=== PATIENT | female | born 1960 | race Caucasian/White ===

== ENCOUNTER → 2017-06-06 | Outpatient (CLI) | payer BC ==
--- NOTE | 2017-06-06 14:43 | MM ---
Reason for exam: screening (asymptomatic). Last mammogram was performed 1 year ago. History: Patient is postmenopausal. Family history of breast cancer in mother. Took hormonal contraceptives for 20 years beginning at age 17. Physical Findings: A clinical breast exam by your physician is recommended on an annual basis and results should be correlated with mammographic findings. MG 3D Screening Mammo W/Cad Bilateral CC and MLO view(s) were taken. Prior study comparison: May 31, 2016, bilateral MG 3d screening mammo w/cad. April 30, 2015, bilateral MG screening mammo w CAD. The breast tissue is heterogeneously dense. This may lower the sensitivity of mammography. No suspicious calcifications are seen. Focal asymmetry upper right MLO view, 7.8cm from nipple. ASSESSMENT: Incomplete: need additional imaging evaluation, BI-RAD 0 RECOMMENDATION: Special view mammogram of the right breast. If lesion persists on supplemental views, image directed ultrasound is recommended. [facility] will attempt to contact patient to return for supplemental views and ultrasound if indicated.
== END | disposition home or self-care (01) ==
LOC: RADMAMWWP 09:33
PROVIDERS: ATTEND Family Medicine
DX: Z12.31 Encounter for screening mammogram for malignant neoplasm of breast (principal); R92.2 Inconclusive mammogram
CPT/HCPCS: 77063; G0202

== ENCOUNTER → 2017-06-18 | Outpatient (CLI) | payer BC ==
--- NOTE | 2017-06-18 09:58 | MM ---
Reason for exam: additional evaluation requested from abnormal screening. Last mammogram was performed less than 1 month ago. History: Patient is postmenopausal. Family history of breast cancer in mother. Took hormonal contraceptives for 20 years beginning at age 17. Physical Findings: Nurse did not find any significant physical abnormalities on exam. MG 3D Work Up W/Cad RT ML and spot compression MLO view(s) were taken of the right breast. Prior study comparison: June 06, 2017, bilateral MG 3d screening mammo w/cad. May 31, 2016, bilateral MG 3d screening mammo w/cad. There are scattered fibroglandular densities. Finding: There are typically benign calcifications in the right breast. These results were verbally communicated with the patient and result sheet given to the patient on 06/18/17. ASSESSMENT: Probably benign, BI-RAD 3 RECOMMENDATION: Follow-up diagnostic mammogram of the right breast in 6 months.
== END | disposition home or self-care (01) ==
LOC: RADMAMWWP 09:01
PROVIDERS: ATTEND Family Medicine
DX: R92.8 Other abnormal and inconclusive findings on diagnostic imaging of breast (principal)
CPT/HCPCS: G0206; G0279

== ENCOUNTER → 2017-12-07 | Outpatient (CLI) | payer BC ==
--- NOTE | 2017-12-10 08:39 | MM ---
Reason for exam: additional evaluation requested from prior study. Last mammogram was performed 6 months ago. History: Patient is postmenopausal. Family history of breast cancer in mother. Took hormonal contraceptives for 20 years beginning at age 17. Physical Findings: Nurse did not find any significant physical abnormalities on exam. MG 3D Diag Mammo W/Cad RT CC, MLO, and LM view(s) were taken of the right breast. Prior study comparison: June 18, 2017, right breast MG 3d work up w/cad RT. June 06, 2017, bilateral MG 3d screening mammo w/cad. The breast tissue is heterogeneously dense. This may lower the sensitivity of mammography. Finding: There are typically benign round calcifications in the right breast. There is no discrete abnormality. These results were verbally communicated with the patient and result sheet given to the patient on 12/07/17. ASSESSMENT: Benign, BI-RAD 2 RECOMMENDATION: Return to routine screening mammogram schedule for both breasts. Back on schedule.
== END | disposition home or self-care (01) ==
LOC: RADMAMWWP 14:55
PROVIDERS: ATTEND Family Medicine
DX: R92.8 Other abnormal and inconclusive findings on diagnostic imaging of breast (principal)
CPT/HCPCS: 77065; G0279

== ENCOUNTER → 2018-02-18 | Outpatient (CLI) | payer BC ==
--- NOTE | 2018-02-19 09:23 | BD ---
EXAMINATION TYPE: MG DEXA axial skeleton. DATE OF EXAM: 02/18/2018 COMPARISON: NONE CLINICAL HISTORY: 57-year-old female steroid therapy, postmenopausal screening Height: 66 Weight: 173.6 FRAX RISK QUESTIONS: Alcohol (3 or more units per day): no Family History (Parent hip fracture): no Glucocorticoids (More than 3mos): yes (Ex: prednisone, prednisolone, methylprednisolone, dexamethasone, and hydrocortisone). History of Fracture in Adulthood: no Secondary Osteoporosis: 1. Type 1 Diabetes: no 2. Hyperthyroidism: no 3. Menopause before 45: no 4. Malnutrition: no 5. Chronic liver disease: no Rheumatoid Arthritis: yes Current Tobacco Use: no RISK FACTORS HISTORY OF: Family History of Osteoporosis: yes-mother Active: sometimes Diet low in dairy products/other sources of calcium: no Postmenopausal woman: around age 51 Lost more than 2 inches in height since high school: no Frequent falls: no Adrenal Insufficiency: no MEDICATIONS: plaquinil Prednisone or other steroids: yes How Lon 1/2 years Additional History: EXAM MEASUREMENTS: Bone mineral densitometry was performed using the [email or web address] System. Bone mineral density as measured about the Lumbar spine is: ----- L1-L4(G/cm2): 1.336 T Score Values are as follows: ----- L2: 0.4 ----- L3: 0.8 ----- L4: 2.1 ----- L1-L4: 1.1 Bone mineral density has: baseline Bone mineral density about the R hip (g/cm2): 0.814 Bone mineral density about the L hip (g/cm2): 0.829 T Score values are as follows: -----R Neck: -1.6 -----L Neck: -1.5 -----R Total: -0.9 -----L Total: -0.8 Bone mineral density has: baseline IMPRESSION: Osteopenia (T Score between -2.5 and -1). There is slightly increased risk of fracture and the patient may be considered for treatment. Re-Screen 2-5 years. NOTE: T-SCORE=SD OF THE YOUNG ADULT MEAN.
== END | disposition home or self-care (01) ==
LOC: RADBDWWP 16:24
PROVIDERS: ATTEND Family Medicine
DX: M85.80 Other specified disorders of bone density and structure, unspecified site (principal); N95.1 Menopausal and female climacteric states; Z92.241 Personal history of systemic steroid therapy
CPT/HCPCS: 77080

== ENCOUNTER → 2018-06-26 | Outpatient (CLI) | payer BC ==
--- NOTE | 2018-07-02 09:43 | MM ---
Reason for exam: screening (asymptomatic). Last mammogram was performed 7 months ago. History: Patient is postmenopausal. Family history of breast cancer in mother. Took hormonal contraceptives for 20 years beginning at age 17. Physical Findings: A clinical breast exam by your physician is recommended on an annual basis and results should be correlated with mammographic findings. MG 3D Screening Mammo W/Cad Bilateral CC and MLO view(s) were taken. Prior study comparison: December 07, 2017, right breast MG 3d diag mammo w/cad RT. June 18, 2017, right breast MG 3d work up w/cad RT. The breast tissue is heterogeneously dense. This may lower the sensitivity of mammography. No suspicious abnormality. No significant changes when compared with prior studies. ASSESSMENT: Benign, BI-RAD 2 RECOMMENDATION: Routine screening mammogram of both breasts in 1 year.
== END | disposition home or self-care (01) ==
LOC: RADMAMWWP 07:04
PROVIDERS: ATTEND Family Medicine
DX: Z12.31 Encounter for screening mammogram for malignant neoplasm of breast (principal)
CPT/HCPCS: 77063; 77067

== ENCOUNTER 2019-01-10 17:43 | Emergency (ER) | payer BC ==
[2019-01-10 17:48] VITALS: RESP 18
--- NOTE | 2019-01-10 18:17 | ED ---
General Adult HPI - General Chief complaint: Extremity Problem,Nontraumatic Stated complaint: Rt leg swelling Time Seen by Provider: 01/10/19 17:48 Source: patient, RN notes reviewed Mode of arrival: ambulatory Limitations: no limitations - History of Present Illness Initial comments: 58-year-old female presents to the emergency department for a chief complaint of right leg swelling 2 days. Patient states she has had pain in the posterior aspect of the right leg. Patient states she went to the chiropractor today and she did have some muscle spasms but they were concerned for blood clot. Patient states she then presented to the emergency department for evaluation. Patient denies previous history of clots. Patient denies any recent travel or hormone use. Patient denies any shortness of breath or chest pain. Patient has no other complaints at this time including shortness of breath , chest pain, abdominal pain, nausea or vomiting, headache, or visual changes. - Related Data Home Medications Medication Instructions Recorded Confirmed Aspirin [[place] Aspirin EC] 81 mg PO DAILY 01/10/19 01/10/19 Baclofen [Lioresal] 10 mg PO HS 01/10/19 01/10/19 Hydroxychloroquine Sulfate 200 mg PO DAILY 01/10/19 01/10/19 [Plaquenil] Ibuprofen [Motrin Ib] 400 mg PO Q46H PRN 01/10/19 01/10/19 Levothyroxine Sodium [Synthroid] 25 mcg PO DAILY 01/10/19 01/10/19 Omeprazole 20 mg PO DAILY 01/10/19 01/10/19 traMADol HCl [Ultram] 100 mg PO DAILY 01/10/19 01/10/19 Allergies Allergy/AdvReac Type Severity Reaction Status Date / Time Sulfa (Sulfonamide Allergy Rash/Hives Verified 01/10/19 18:14 Antibiotics) Review of Systems ROS Statement: Those systems with pertinent positive or pertinent negative responses have been documented in the HPI. ROS Other: All systems not noted in ROS Statement are negative. Past Medical History Past Medical History: Osteoarthritis (OA), Thyroid Disorder History of Any Multi-Drug Resistant Organisms: None Reported Past Surgical History: Tubal Ligation Past Psychological History: No Psychological Hx Reported Smoking Status: Never smoker Past Alcohol Use History: Occasional Past Drug Use History: None Reported General Exam Limitations: no limitations General appearance: alert, in no apparent distress Head exam: Present: atraumatic, normocephalic, normal inspection Eye exam: Present: normal appearance, PERRL, EOMI. Absent: scleral icterus, conjunctival injection, periorbital swelling ENT exam: Present: normal exam, mucous membranes moist Neck exam: Present: normal inspection, full ROM. Absent: tenderness, meningismus, lymphadenopathy Respiratory exam: Present: normal lung sounds bilaterally. Absent: respiratory distress, wheezes, rales, rhonchi, stridor Cardiovascular Exam: Present: regular rate, normal rhythm, normal heart sounds. Absent: systolic murmur, diastolic murmur, rubs, gallop, clicks GI/Abdominal exam: Present: soft, normal bowel sounds. Absent: distended, tenderness, guarding, rebound, rigid Extremities exam: Present: full ROM (Full range of motion in the right lower extremity), tenderness (Minimal tenderness noted to the posterior right knee. No tenderness to the anterior right knee.), normal capillary refill (camp refill < 2 seconds, DP pulse strong on doppler), other (mild amount of edema noted in RLE, no erythema present. Negative Homans sign.) Course Vital Signs 01/10/19 01/10/19 17:44 19:06 Temperature 98.1 F Pulse Rate 72 71 Respiratory 18 18 Rate Blood Pressure 150/73 163/73 O2 Sat by Pulse 99 99 Oximetry Medical Decision Making - Medical Decision Making 58-year-old female presents to the emergency department for chief right leg swelling. Patient states pain is posterior to the right knee. Patient does have full range of motion but has pain behind the knee when flexing the right knee. On ultrasound no evidence of DVT however patient does have a 4 cm popliteal cyst. Likely causing patient's symptoms. No evidence of infection. Neurovascular intact. Patient will follow up with orthopedics. Pablito wrap applied here and educated on rice therapy and NSAIDs. Patient will return if she has any worsening symptoms. Disposition Clinical Impression: Popliteal cyst Disposition: HOME SELF-CARE Condition: Good Instructions (If sedation given, give patient instructions): Bakers Cyst (ED) Additional Instructions: Please take Motrin or Tylenol for pain. Use Pablito wrap as needed. Please follow up with orthopedics in one to 2 days. Return here to the emergency department if you have any worsening symptoms. Is patient prescribed a controlled substance at d/c from ED?: No Referrals: Dave Vigil MD [Primary Care Provider] - 1-2 days Griffin Gallo MD [STAFF PHYSICIAN] - 1-2 days Time of Disposition: 19:34
--- NOTE | 2019-01-10 19:08 | US ---
EXAMINATION TYPE: US venous doppler duplex LE RT DATE OF EXAM: 01/10/2019 6:43 PM COMPARISON: NONE CLINICAL HISTORY: Pain. pain, no hx of blood clots, on aspirin, no redness, no injury, no previous [place] rgeries SIDE PERFORMED: Right TECHNIQUE: The lower extremity deep venous system is examined utilizing real time linear array sonog abdirahman with graded compression, doppler sonography and color-flow sonography. VESSELS IMAGED: External Iliac Vein (EIV) Common Femoral Vein Deep Femoral Vein Greater Saphenous Vein * Femoral Vein Popliteal Vein Small Saphenous Vein * Proximal Calf Veins (* superficial vessels) Right Leg: Negative for DVT. Posterior knee, hypoechoic lesion seen - 4.1 x 2.5 x 2.2 cm IMPRESSION: No evidence of deep venous thrombosis. Popliteal cyst is noted.
[2019-01-10 19:42] VITALS: BP 154/82; PULSE 78; TEMP 97.8
== END 2019-01-10 19:43 | disposition home or self-care (01) ==
LOC: EC 17:43
DX: M71.21 Synovial cyst of popliteal space [Baker], right knee (principal); E07.9 Disorder of thyroid, unspecified; Z79.82 Long term (current) use of aspirin; Z79.890 Hormone replacement therapy; Z79.899 Other long term (current) drug therapy; Z88.2 Allergy status to sulfonamides
CPT/HCPCS: 99283

== ENCOUNTER → 2019-06-30 | Outpatient (CLI) | payer BC ==
--- NOTE | 2019-06-30 13:47 | MM ---
Reason for exam: additional evaluation requested from prior study. Last mammogram was performed 1 year ago. History: Patient is postmenopausal. Family history of breast cancer in mother. Took hormonal contraceptives for 20 years beginning at age 17. Physical Findings: Nurse did not find any significant physical abnormalities on exam. MG 3D Diag Mammo W/Cad CODI Bilateral CC, MLO, LM, and spot compression CC view(s) were taken. Prior study comparison: June 26, 2018, bilateral MG 3d screening mammo w/cad. December 07, 2017, right breast MG 3d diag mammo w/cad RT. There are scattered fibroglandular densities. Lateral asymmetric density is seen on 3D within the right breast, but does not persist on spot 3D view. No significant new findings when compared with previous films. These results were verbally communicated with the patient and result sheet given to the patient on 06/30/19. ASSESSMENT: Benign, BI-RAD 2 RECOMMENDATION: Routine screening mammogram of both breasts in 1 year.
== END | disposition home or self-care (01) ==
LOC: RADMAMWWP 12:56
PROVIDERS: ATTEND Family Medicine
DX: R92.8 Other abnormal and inconclusive findings on diagnostic imaging of breast (principal)
CPT/HCPCS: 77062; 77066

== ENCOUNTER → 2021-09-05 | Outpatient (CLI) | payer BC ==
--- NOTE | 2021-09-06 10:45 | MM ---
Reason for exam: screening (asymptomatic). Last mammogram was performed 1 year and 1 month ago. History: Patient is postmenopausal. Family history of breast cancer in mother. Took hormonal contraceptives for 20 years beginning at age 17. Physical Findings: A clinical breast exam by your physician is recommended on an annual basis and results should be correlated with mammographic findings. MG 3D Screening Mammo W/Cad Bilateral CC and MLO view(s) were taken. Prior study comparison: August 04, 2020, bilateral MG 3d screening mammo w/cad. June 30, 2019, bilateral MG 3d diag mammo w/cad CODI. June 26, 2018, bilateral MG 3d screening mammo w/cad. The breast tissue is heterogeneously dense. This may lower the sensitivity of mammography. There are benign appearing round calcifications bilaterally. There is no discrete abnormality. ASSESSMENT: Benign, BI-RAD 2 RECOMMENDATION: Routine screening mammogram of both breasts in 1 year.
== END | disposition home or self-care (01) ==
LOC: RADMAMWWP 16:22
PROVIDERS: ATTEND Obstetrics & Gynecology
DX: Z12.31 Encounter for screening mammogram for malignant neoplasm of breast (principal); Z78.0 Asymptomatic menopausal state; Z80.3 Family history of malignant neoplasm of breast
CPT/HCPCS: 77063; 77067

== ENCOUNTER → 2022-10-04 | Outpatient (CLI) | payer BC ==
--- NOTE | 2022-10-04 10:41 | MM ---
Reason for Exam: Additional evaluation requested from abnormal screening. Last screening mammogram was performed less than 1 month ago. Patient History: Menarche at age 12. First Full-Term at age 31. Late child-bearing (after 30). Postmenopausal. Patient has history of breast feeding. Hormonal Contraceptives, starting at age 17 for 20 years. Mother had breast cancer, age 54. Risk Values: Breanne 5 year model risk: 3.3%. NCI Lifetime model risk: 15.1%. Prior Study Comparison: 08/13/1999 Screening Mammogram, [facility]. 05/20/2012 Bilateral Screening Mammogram, [facility]. 07/02/2013 Bilateral Screening Mammogram, [facility]. 07/07/2014 Bilateral Screening Mammogram, [facility]. 04/30/2015 Bilateral Screening Mammogram, [facility]. 05/31/2016 Bilateral Screening Mammogram, [facility]. 06/06/2017 Bilateral Screening Mammogram, [facility]. 06/18/2017 Right Diagnostic Mammogram, [facility]. 12/07/2017 Right Diagnostic Mammogram, [facility]. 06/26/2018 Bilateral Screening Mammogram, [facility]. 06/30/2019 Bilateral Diagnostic Mammogram, [facility]. 08/04/2020 Bilateral Screening Mammogram, [facility]. 09/05/2021 Bilateral Screening Mammogram, [facility]. 09/13/2022 Bilateral MG 3D screening mammo w/cad, [facility]. Tissue Density: Left: The breast tissue is heterogeneously dense. This may lower the sensitivity of mammography. Findings: Analyzed By CAD. Asymmetric density upper left breast also persists although appears to be less conspicuous on spot images as well as a true lateral view. Ultrasound is advised. Overall Assessment: Incomplete: need additional imaging evaluation, BI-RAD 0 Management: Diagnostic Breast Ultrasound of the left breast. A clinical breast exam by your physician is recommended on an annual basis and results should be correlated with mammographic findings. This exam should not preclude additional follow-up of suspicious palpable abnormalities. Results were given to the patient verbally at the time of exam. Electronically signed and approved by: Ovidio Gusman M.D. Radiologis
--- NOTE | 2022-10-04 11:12 | USB ---
Reason for Exam: Additional evaluation requested from abnormal screening. Patient History: Menarche at age 12. First Full-Term at age 31. Late child-bearing (after 30). Postmenopausal. Patient has history of breast feeding. Hormonal Contraceptives, starting at age 17 for 20 years. Mother had breast cancer, age 54. Risk Values: Breanne 5 year model risk: 3.3%. NCI Lifetime model risk: 15.1%. Technique: Method: Targeted. Prior Study Comparison: 08/04/2020 Bilateral Screening Mammogram, [facility]. 09/05/2021 Bilateral Screening Mammogram, [facility]. 09/13/2022 Bilateral MG 3D screening mammo w/cad, [facility]. Findings: The upper section of the breast of the left breast, the axilla of the left breast and the retroareolar of the left breast were scanned. No solid or cystic masses are identified.. There is mildly prominent left axillary lymph node which could be reactive in nature. Short-term follow-up is recommended in 3 months. Overall Assessment: Probably benign, BI-RAD 3 Management: Diagnostic Breast Ultrasound of the left breast in 3 months. A clinical breast exam by your physician is recommended on an annual basis and results should be correlated with mammographic findings. This exam should not preclude additional follow-up of suspicious palpable abnormalities. Results were given to the patient verbally at the time of exam. Electronically signed and approved by: Ovidio Gusman M.D. Radiologis
== END | disposition home or self-care (01) ==
LOC: RADMAMWWP 09:58
PROVIDERS: ATTEND Obstetrics & Gynecology
DX: R92.8 Other abnormal and inconclusive findings on diagnostic imaging of breast (principal); Z78.0 Asymptomatic menopausal state; Z80.3 Family history of malignant neoplasm of breast
CPT/HCPCS: 77061; 77065

== ENCOUNTER → 2023-01-25 | Outpatient (CLI) | payer BC ==
[2023-01-25 15:37] VITALS: BP 146/81; PULSE 67; RESP 17; TEMP 98.2
--- NOTE | 2023-01-25 16:07 | P.GSHP ---
History of Present Illness H&P Date: 01/25/23 Chief Complaint: enlarged axillary node Domonique is a 62 year old white female seen in consultation for Dr. Morales regarding an abnormal left axillary node. The patient had a bilateral screening mammogram performed on . This revealed an area of concern in the left breast for which a diagnostic mammogram was performed on [id number]. This subsequently resulted in an ultrasound being performed which revealed mildly prominent left axillary lymph node which was felt to be possibly reactive in nature. A short-term follow up in 3 months was recommended. The patient subsequently underwent a repeat ultrasound to follow the lymph node up [id number] which revealed that the lymph node remained present. Therefore was considered BIRADS 4 and a ultrasound-guided core biopsy was performed and [id number]. The lymph node at the that time was 3.5 cm long and had cortical thickening of 4-5 mm. The biopsy results revealed on [id number] a benign reactive lymph node and was felt to be concordant. The patient herself does not feel any new lumps masses or nodules of concern in either breast or under either arm. She is not complaining of any recent trauma or infection in her breast. She has never had any surgery on her breast. She states that after the core biopsy she had some soreness of her left arm from the shoulder to the elbow externally. This improving at this time. She did have the COVID vaccine in December 2020. Caffiene: 2 cups/day nicotine: none BCP: 15 years hormoens: none chocolate: weekly Family History: mother: breast cancer post-menopausal father: colon cancer paternal grandfather: colon cancer brother: skin cancer ? type brother: prostate cancer Hormonal History: menarche: 14 age at first : 31, breast fed: tried menopause: 51 Surgical History: tubaligation Medical History: hypothyroid HTN high cholesterol arthritis ( took prednisone for many years) Social History: nicotine: none alcohol: occasional drugs: none - Constitutional Constitutional: Reports sweats, Denies chills, Denies fever - EENT Eyes: denies blurred vision, denies pain Ears: bilateral: decreased hearing, deny: tinnitus Ears, nose, mouth and throat: Denies headache, Denies sore throat - Breasts Breasts: bilateral: as per HPI - Cardiovascular Cardiovascular: Denies chest pain, Denies shortness of breath - Respiratory Respiratory: Denies cough, Denies 7 - Gastrointestinal Comment: PUD Gastrointestinal: Denies abdominal pain, Denies diarrhea, Denies nausea, Denies vomiting - Genitourinary (Female) Genitourinary: Denies dysuria, Denies hematuria - Menstruation Menstruation: Reports postmenopausal - Musculoskeletal Musculoskeletal: Reports as per HPI - Integumentary Integumentary: Denies pruritus, Denies rash - Neurological Neurological: Denies numbness, Denies weakness - Psychiatric Psychiatric: Denies anxiety, Denies depression - Endocrine Endocrine: Denies fatigue, Denies weight change - Hematologic/Lymphatic Comment: baby aspirin daily - Allergic/Immunologic Allergic/Immunologic: Reports as per HPI Past Medical History Past Medical History: Hyperlipidemia, Hypertension, Osteoarthritis (OA), Thyroid Disorder History of Any Multi-Drug Resistant Organisms: None Reported Past Surgical History: Tubal Ligation Past Anesthesia/Blood Transfusion Reactions: No Reported Reaction Past Psychological History: No Psychological Hx Reported Smoking Status: Never smoker Past Alcohol Use History: Occasional Past Drug Use History: None Reported Medications and Allergies Home Medications Medication Instructions Recorded Confirmed Type Aspirin [[place] Aspirin EC] 81 mg PO DAILY 01/10/19 01/25/23 History Baclofen [Lioresal] 10 mg PO HS 01/10/19 01/25/23 History Ibuprofen [Motrin Ib] 400 mg PO Q46H PRN 01/10/19 01/25/23 History Levothyroxine Sodium [Synthroid] 25 mcg PO DAILY 01/10/19 01/25/23 History Omeprazole 20 mg PO DAILY 01/10/19 01/25/23 History traMADol HCl [Ultram] 100 mg PO BID 01/10/19 01/25/23 History Losartan-Hctz 50-12.5 mg [Hyzaar 1 tab PO DAILY 01/09/23 01/25/23 History 50-12.5] Rosuvastatin [Crestor] 10 mg PO DAILY 01/09/23 01/25/23 History Allergies Allergy/AdvReac Type Severity Reaction Status Date / Time Sulfa (Sulfonamide Allergy Rash/Hives Verified 01/25/23 15:30 Antibiotics) Surgical - Exam Vital Signs Temp Pulse Resp BP Pulse Ox 98.2 F 67 17 146/81 98 01/25/23 15:32 01/25/23 15:32 01/25/23 15:32 01/25/23 15:32 01/25/23 15:32 - General no distress - Eyes normal ocular movement - Neck trachea midline - Respiratory normal respiratory effort, clear to auscultation - Cardiovascular Rhythm: regular Heart Sounds: normal: S1, S2 - Abdomen Abdomen: soft, non tender, no guarding, no rigid, no rebound - Integumentary normal turgor - Neurologic no disoriented, no combative - Musculoskeletal normal gait - Psychiatric oriented to time, oriented to person, oriented to place, speech is normal, memory intact Breast Exam: BRA: 38DD Inspection: Bilateral grade 2/3 ptosis Palpation: Right breast: Multi-positional exam fibrocystic changes no dominant masses or nodules of concern Right axilla: No adenopathy of concern Left breast: Multi-positional exam fibrocystic changes no dominant masses or nodules of concern Left axilla: No adenopathy of concern No cervical adenopathy of concern No groin adenopathy of concern No enlargement of the liver or spleen Results Mammogram and ultrasound results reviewed Assessment and Plan Assessment: Impression: Ultrasound core biopsy of left axillary node benign and concordant Plan: Repeat bilateral mammogram in September 2023 Repeat left axillary ultrasound in 6 months with physician exam at that time CC: Dr. Morales, Dr. Kodi Vigil
== END ==
LOC: WWCWWP 15:24
PROVIDERS: ATTEND Surgery
DX: N63.32 Unspecified lump in axillary tail of the left breast (principal); E78.5 Hyperlipidemia, unspecified; I10 Essential (primary) hypertension; M19.90 Unspecified osteoarthritis, unspecified site; Z79.82 Long term (current) use of aspirin; Z88.2 Allergy status to sulfonamides; E03.9 Hypothyroidism, unspecified; Z79.890 Hormone replacement therapy

== ENCOUNTER → 2023-07-23 | Outpatient (CLI) | payer BC ==
--- NOTE | 2023-07-23 10:00 | USB ---
Reason for Exam: Follow-up at short interval from prior study. Patient History: Menarche at age 12. First Full-Term at age 31. Late child-bearing (after 30). Postmenopausal. Patient has history of breast feeding. Hormonal Contraceptives, starting at age 17 for 20 years. 01/18/2023, Benign US biopsy breast VAD LT on the left side. Mother had breast cancer, age 54. Risk Values: Breanne 5 year model risk: 3.9%. NCI Lifetime model risk: 17.6%. Technique: Method: Targeted. Prior Study Comparison: 09/05/2021 Bilateral Screening Mammogram, [facility]. 09/13/2022 Bilateral MG 3D screening mammo w/cad, [facility]. 10/04/2022 Left MG 3D work up w/cad LT, [facility]. Findings: The axilla of the left breast was scanned. No solid or cystic masses are identified. Previously sampled lymph node is again noted and measures 2.1 x .7 cm vs 3.5 cm in length previously. Overall Assessment: Benign, BI-RAD 2 Management: Screening Mammogram of both breasts in 6 months. A clinical breast exam by your physician is recommended on an annual basis and results should be correlated with mammographic findings. This exam should not preclude additional follow-up of suspicious palpable abnormalities. Results were given to the patient verbally at the time of exam. Electronically signed and approved by: Ovidio Gusman M.D. Radiologis
== END | disposition home or self-care (01) ==
LOC: RADUSWWP 09:37
PROVIDERS: ATTEND Surgery
DX: N63.20 Unspecified lump in the left breast, unspecified quadrant (principal); Z78.0 Asymptomatic menopausal state; Z80.3 Family history of malignant neoplasm of breast

== ENCOUNTER → 2023-07-26 | Outpatient (CLI) | payer BC ==
[2023-07-26 16:12] VITALS: BP 124/71; PULSE 59; RESP 18; TEMP 98
--- NOTE | 2023-07-26 16:21 | P.PN ---
Subjective Progress Note Date: 07/26/23 enlarged axillary node Domonique is a 62 year old white female seen in consultation for Dr. Morales regarding an abnormal left axillary node. The patient had a bilateral screening mammogram performed on . This revealed an area of concern in the left breast for which a diagnostic mammogram was performed on [id number]. This subsequently resulted in an ultrasound being performed which revealed mildly prominent left axillary lymph node which was felt to be possibly reactive in nature. A short-term follow up in 3 months was recommended. The patient subsequently underwent a repeat ultrasound to follow the lymph node up [id number] which revealed that the lymph node remained present. Therefore was considered BIRADS 4 and a ultrasound-guided core biopsy was performed and 3922. The lymph node at the that time was 3.5 cm long and had cortical thickening of 4-5 mm. The biopsy results revealed on 3922 a benign reactive lymph node and was felt to be concordant. The patient herself does not feel any new lumps masses or nodules of concern in either breast or under either arm. She is not complaining of any recent trauma or infection in her breast. She has never had any surgery on her breast. She states that after the core biopsy she had some soreness of her left arm from the shoulder to the elbow externally. This improving at this time. She did have the COVID vaccine in December 2020. 07-26-23 The patient underwent a repeat left axillary ultrasound on . This re vealed that the left axillary lymph node which had previously been sampled had decreased in size from 3.5 cm in length to 2.1 cm in length. It was felt to be benign BIRADS 2. She is due for a bilateral mammogram in September 2023. The patient states after the ultrasound core biopsy she developed some aching sensation in the upper and posterior aspect of the left arm. It is not constant. 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 She does have some small blisters that developed between her breast and over other areas when she sweats especially. Caffiene: 2 cups/day nicotine: none BCP: 15 years hormoens: none chocolate: weekly Family History: mother: breast cancer post-menopausal father: colon cancer paternal grandfather: colon cancer brother: skin cancer ? type brother: prostate cancer Hormonal History: menarche: 14 age at first : 31, breast fed: tried menopause: 51 Surgical History: tubaligation Medical History: hypothyroid HTN high cholesterol arthritis ( took prednisone for many years) Social History: nicotine: none alcohol: occasional drugs: none - Constitutional Constitutional: Reports sweats, Denies chills, Denies fever - EENT Eyes: denies blurred vision, denies pain Ears: bilateral: decreased hearing, deny: tinnitus Ears, nose, mouth and throat: Denies headache, Denies sore throat - Breasts Breasts: bilateral: as per HPI - Cardiovascular Cardiovascular: Denies chest pain, Denies shortness of breath - Respiratory Respiratory: Denies cough - Gastrointestinal Comment: PUD Gastrointestinal: Denies abdominal pain, Denies diarrhea, Denies nausea, Denies vomiting - Genitourinary (Female) Genitourinary: Denies dysuria, Denies hematuria - Menstruation Menstruation: Reports postmenopausal - Musculoskeletal Musculoskeletal: Reports as per HPI - Integumentary Integumentary: Denies pruritus, Denies rash - Neurological Neurological: Denies numbness, Denies weakness - Psychiatric Psychiatric: Denies anxiety, Denies depression - Endocrine Endocrine: Denies fatigue, Denies weight change - Hematologic/Lymphatic Comment: baby aspirin daily - Allergic/Immunologic Allergic/Immunologic: Reports as per HPI Past Medical History Past Medical History: Hyperlipidemia, Hypertension, Osteoarthritis (OA), Thyroid Disorder History of Any Multi-Drug Resistant Organisms: None Reported Past Surgical History: Tubal Ligation Past Anesthesia/Blood Transfusion Reactions: No Reported Reaction Past Psychological History: No Psychological Hx Reported Smoking Status: Never smoker Past Alcohol Use History: Occasional Past Drug Use History: None Reported Medications and Allergies Home Medications Medication Instructions Recorded Confirmed Type Aspirin [[place] Aspirin EC] 81 mg PO DAILY 01/10/19 01/25/23 History Baclofen [Lioresal] 10 mg PO HS 01/10/19 01/25/23 History Ibuprofen [Motrin Ib] 400 mg PO Q46H PRN 01/10/19 01/25/23 History Levothyroxine Sodium [Synthroid] 25 mcg PO DAILY 01/10/19 01/25/23 History Omeprazole 20 mg PO DAILY 01/10/19 01/25/23 History traMADol HCl [Ultram] 100 mg PO BID 01/10/19 01/25/23 History Losartan-Hctz 50-12.5 mg [Hyzaar 1 tab PO DAILY 01/09/23 01/25/23 History 50-12.5] Rosuvastatin [Crestor] 10 mg PO DAILY 01/09/23 01/25/23 History Allergies Allergy/AdvReac Type Severity Reaction Status Date / Time Sulfa (Sulfonamide Allergy Rash/Hives Verified 01/25/23 15:30 Antibiotics) Objective - Vital Signs Vital signs: Intake & Output 07/25/23 07/26/23 07/26/23 18:59 06:59 18:59 Weight 81.647 kg - Constitutional General appearance: Present: cooperative - EENT Eyes: Present: EOMI ENT: Present: hearing grossly normal - Neck Neck: Present: normal ROM - Integumentary Integumentary: Present: normal turgor - Musculoskeletal Musculoskeletal: Present: gait normal - Psychiatric Psychiatric: Present: A&O x's 3, appropriate affect, intact judgment & insight - Additional findings Additional findings: Examination of the left axilla is performed No adenopathy of concern There is pain when she hyperextends the axilla or ports the arm behind her head which is similar to what she had when she had the ultrasound core biopsy No cervical adenopathy of concern No right axillary adenopathy of concern Assessment and Plan Assessment: Impression: Ultrasound core biopsy of left axillary node benign and concordant Intermittent discomfort left shoulder/exacerbated by putting her arm over her head Plan: Repeat bilateral mammogram in September 2023 The patient was given the option of seeing physical therapy related to the left shoulder discomfort and at this time has declined Patient will follow up after her bilateral mammogram in September CC: Dr. Morales, Dr. Kodi Vigil
== END ==
LOC: WWCWWP 15:27
PROVIDERS: ATTEND Surgery
DX: I10 Essential (primary) hypertension (principal); E03.9 Hypothyroidism, unspecified; E78.00 Pure hypercholesterolemia, unspecified; M19.90 Unspecified osteoarthritis, unspecified site; Z80.3 Family history of malignant neoplasm of breast; Z79.890 Hormone replacement therapy; Z88.2 Allergy status to sulfonamides; Z79.82 Long term (current) use of aspirin; Z79.899 Other long term (current) drug therapy

== ENCOUNTER → 2023-09-14 | Outpatient (CLI) | payer BC ==
--- NOTE | 2023-09-17 08:56 | MM ---
Reason for Exam: Screening (asymptomatic). Last screening mammogram was performed 12 month(s) ago. Patient History: Menarche at age 12. First Full-Term at age 31. Late child-bearing (after 31). Postmenopausal. Patient has history of breast feeding. Hormonal Contraceptives, starting at age 17 for 20 years. 01/18/2023, Benign US biopsy breast VAD LT on the left side. Niece had breast cancer, age 47. Mother had breast cancer, age 54. Risk Values: Breanne 5 year model risk: 3.9%. NCI Lifetime model risk: 17.6%. Prior Study Comparison: 09/05/2021 Bilateral Screening Mammogram, [facility]. 09/13/2022 Bilateral MG 3D screening mammo w/cad, [facility]. 10/04/2022 Left MG 3D work up w/cad LT, [facility]. Tissue Density: There are scattered fibroglandular densities. Findings: Analyzed By CAD. Pattern appears stable. Benign calcification is present within the right breast. Some punctate calcifications within the left breast. No significant interval changes. No suspicious groups of microcalcifications, spiculated or lobular masses, architectural distortion or other secondary signs of malignancy are mammographically apparent. Overall Assessment: Benign, BI-RAD 2 Management: Screening Mammogram of both breasts in 1 year. A negative mammogram report should not preclude additional follow up of suspicious palpable abnormalities. Patient should continue monthly self breast exam. A clinical breast exam by your physician is recommended on an annual basis and results should be correlated with mammographic findings. Electronically signed and approved by: Sd Bautista D.O. Radiologis
== END | disposition home or self-care (01) ==
LOC: RADMAMWWP 08:18
PROVIDERS: ATTEND Surgery
DX: Z12.31 Encounter for screening mammogram for malignant neoplasm of breast (principal); Z78.0 Asymptomatic menopausal state; Z80.3 Family history of malignant neoplasm of breast
CPT/HCPCS: 77063; 77067

== ENCOUNTER → 2023-09-21 | Outpatient (CLI) | payer BC ==
--- NOTE | 2023-09-21 15:47 | P.PN ---
Subjective Progress Note Date: 09/21/23 07/26/23 enlarged axillary node Domonique is a 62 year old white female seen in consultation for Dr. Morales regarding an abnormal left axillary node. The patient had a bilateral screening mammogram performed on . This revealed an area of concern in the left breast for which a diagnostic mammogram was performed on [id number]. This subsequently resulted in an ultrasound being performed which revealed mildly prominent left axillary lymph node which was felt to be possibly reactive in nature. A short-term follow up in 3 months was recommended. The patient subsequently underwent a repeat ultrasound to follow the lymph node up [id number] which revealed that the lymph node remained present. Therefore was considered BIRADS 4 and a ultrasound-guided core biopsy was performed and 3922. The lymph node at the that time was 3.5 cm long and had cortical thickening of 4-5 mm. The biopsy results revealed on 3922 a benign reactive lymph node and was felt to be concordant. The patient herself does not feel any new lumps masses or nodules of concern in either breast or under either arm. She is not complaining of any recent trauma or infection in her breast. She has never had any surgery on her breast. She states that after the core biopsy she had some soreness of her left arm from the shoulder to the elbow externally. This improving at this time. She did have the COVID vaccine in December 2020. 07-26-23 The patient [place] [id number]. This revealed that the left axillary lymph node which had previously been sampled had decreased in size from 3.5 cm in length to 2.1 cm in length. It was felt to be benign BIRADS 2. She is due for a bilateral mammogram in September 2023. The patient states after the ultrasound core biopsy she developed some aching sensation in the upper and posterior aspect of the left arm. It is not constant. 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 She does have some small blisters that developed between her breast and over other areas when she sweats especially. bilateral mammogram on 09-14-23 BIRAD 2 Breanne risk evaluation 5 years: 3.9% NCI lifetime risk 17.6% This time patient has declined chemoprevention. The patient was having some pain in her left axilla when she hyperextended her arm that is intermittent at this time. Caffiene: 2 cups/day nicotine: none BCP: 15 years hormoens: none chocolate: weekly Family History: mother: breast cancer post-menopausal father: colon cancer paternal grandfather: colon cancer brother: skin cancer ? type brother: prostate cancer Hormonal History: menarche: 14 age at first : 31, breast fed: tried menopause: 51 Surgical History: tubaligation Medical History: hypothyroid HTN high cholesterol arthritis ( took prednisone for many years) Social History: nicotine: none alcohol: occasional drugs: none - Constitutional Constitutional: Reports sweats, Denies chills, Denies fever - EENT Eyes: denies blurred vision, denies pain Ears: bilateral: decreased hearing, deny: tinnitus Ears, nose, mouth and throat: Denies headache, Denies sore throat - Breasts Breasts: bilateral: as per HPI - Cardiovascular Cardiovascular: Denies chest pain, Denies shortness of breath - Respiratory Respiratory: Denies cough - Gastrointestinal Comment: PUD Gastrointestinal: Denies abdominal pain, Denies diarrhea, Denies nausea, Denies vomiting - Genitourinary (Female) Genitourinary: Denies dysuria, Denies hematuria - Menstruation Menstruation: Reports postmenopausal - Musculoskeletal Musculoskeletal: Reports as per HPI - Integumentary Integumentary: Denies pruritus, Denies rash - Neurological Neurological: Denies numbness, Denies weakness - Psychiatric Psychiatric: Denies anxiety, Denies depression - Endocrine Endocrine: Denies fatigue, Denies weight change - Hematologic/Lymphatic Comment: baby aspirin daily - Allergic/Immunologic Allergic/Immunologic: Reports as per HPI Past Medical History Past Medical History: Hyperlipidemia, Hypertension, Osteoarthritis (OA), Thyroid Disorder History of Any Multi-Drug Resistant Organisms: None Reported Past Surgical History: Tubal Ligation Past Anesthesia/Blood Transfusion Reactions: No Reported Reaction Past Psychological History: No Psychological Hx Reported Smoking Status: Never smoker Past Alcohol Use History: Occasional Past Drug Use History: None Reported Medications and Allergies Home Medications Medication Instructions Recorded Confirmed Type Aspirin [[place] Aspirin EC] 81 mg PO DAILY 01/10/19 01/25/23 History Baclofen [Lioresal] 10 mg PO HS 01/10/19 01/25/23 History Ibuprofen [Motrin Ib] 400 mg PO Q46H PRN 01/10/19 01/25/23 History Levothyroxine Sodium [Synthroid] 25 mcg PO DAILY 01/10/19 01/25/23 History Omeprazole 20 mg PO DAILY 01/10/19 01/25/23 History traMADol HCl [Ultram] 100 mg PO BID 01/10/19 01/25/23 History Losartan-Hctz 50-12.5 mg [Hyzaar 1 tab PO DAILY 01/09/23 01/25/23 History 50-12.5] Rosuvastatin [Crestor] 10 mg PO DAILY 01/09/23 01/25/23 History Allergies Allergy/AdvReac Type Severity Reaction Status Date / Time Sulfa (Sulfonamide Allergy Rash/Hives Verified 01/25/23 15:30 Antibiotics) Objective - Constitutional General appearance: Present: cooperative - EENT Eyes: Present: EOMI ENT: Present: hearing grossly normal - Neck Neck: Present: normal ROM - Respiratory Respiratory: bilateral: CTA - Cardiovascular Rhythm: regular - Integumentary Integumentary: Present: normal turgor - Musculoskeletal Musculoskeletal: Present: gait normal - Psychiatric Psychiatric: Present: A&O x's 3, appropriate affect, intact judgment & insight - Additional findings Additional findings: Breast Exam: BRA: 38DD Inspection: A lateral grade 2/3 ptosis Palpation: Right breast: Multiple positional exam fibrocystic changes no dominant masses or nodules of concern Right axilla: No adenopathy of concern Left breast: Multiple positional exam fibrocystic changes no dominant masses or nodules of concern Left axilla: No adenopathy of concern Patient has no restriction in range of motion of the left shoulder at this time Assessment and Plan Assessment: Impression: Fibrocystic breast changes Bilateral mammogram [id number] benign BIRADS 2 Recent left axillary core biopsy benign and concordant Plan: Bilateral mammogram in 1 year 3. Left axillary ultrasound in 6 months with physician exam at that time CC: Dr. Morales, Dr. Flores
== END ==
LOC: WWCWWP 14:47
PROVIDERS: ATTEND Surgery
DX: Z12.31 Encounter for screening mammogram for malignant neoplasm of breast (principal); N60.12 Diffuse cystic mastopathy of left breast; E03.9 Hypothyroidism, unspecified; E78.00 Pure hypercholesterolemia, unspecified; I10 Essential (primary) hypertension; M19.90 Unspecified osteoarthritis, unspecified site; Z79.899 Other long term (current) drug therapy; Z79.890 Hormone replacement therapy; Z88.2 Allergy status to sulfonamides; Z80.3 Family history of malignant neoplasm of breast; Z79.82 Long term (current) use of aspirin

== ENCOUNTER 2024-04-16 16:08 | Emergency (ER) | payer BC ==
[2024-04-16 16:19] VITALS: TEMP 98.4
--- NOTE | 2024-04-16 16:56 | XR ---
EXAMINATION TYPE: XR ankle complete LT DATE OF EXAM: 04/16/2024 4:46 PM CLINICAL INDICATION:Female, 63 years old with history of fall; H COMPARISON: None TECHNIQUE: XR ankle complete LT; ankle is imaged in frontal, lateral and oblique projections. FINDINGS/IMPRESSION: Acute Fracture dislocation of the ankle leg with fractures of the tibia and fibula. There is posterio r displacement of the ankle. Fractures involve the medial malleolus and fibula. Posterior tibial plaf ond fracture not excluded. There is associated soft tissue swelling.
--- NOTE | 2024-04-16 17:08 | ED ---
General Adult HPI <Randy Treviño - Last Filed: 04/16/24 19:34> - General Source: patient, EMS, RN notes reviewed Mode of arrival: EMS Limitations: no limitations <KatarzynajakobMy - Last Filed: 04/17/24 00:43> - General Chief complaint: Fall Stated complaint: Fall-L ankle injury Time Seen by Provider: 04/16/24 16:13 - History of Present Illness Initial comments: 63 year old female presents to the emergency department for evaluation of left ankle injury following a fall. Patient states that she was standing on the deck leaning on the railing when it broke causing her to fall forward. She states that she planted her left foot onto the ground and it twisted. She states that she also fell onto her left arm but denies any pain to that location. She denies head injury. Denies blood thinners. (My Sanchez) - Related Data Home Medications Medication Instructions Recorded Confirmed Aspirin [[place] Aspirin EC] 81 mg PO DAILY 01/10/19 09/21/23 Baclofen [Lioresal] 10 mg PO HS 01/10/19 09/21/23 Ibuprofen [Motrin Ib] 400 mg PO Q46H PRN 01/10/19 09/21/23 Levothyroxine Sodium [Synthroid] 25 mcg PO DAILY 01/10/19 09/21/23 Omeprazole 20 mg PO DAILY 01/10/19 09/21/23 traMADol HCl [Ultram] 100 mg PO BID 01/10/19 09/21/23 Losartan-Hctz 50-12.5 mg [Hyzaar 1 tab PO DAILY 01/09/23 09/21/23 50-12.5] Rosuvastatin [Crestor] 10 mg PO DAILY 01/09/23 09/21/23 Cholecalciferol [Vitamin D3 (25 25 mcg PO DAILY 09/21/23 09/21/23 Mcg = 1000 Iu)] Zinc Gluconate [Zinc] 50 mg PO DAILY 09/21/23 09/21/23 Previous Rx's Medication Instructions Recorded HYDROcodone/APAP 5-325MG [[place] 5] 1 each PO Q6HR PRN #12 tab 04/16/24 Allergies Allergy/AdvReac Type Severity Reaction Status Date / Time Sulfa (Sulfonamide Allergy Rash/Hives Verified 09/21/23 15:36 Antibiotics) Review of Systems ROS Other: All systems not noted in ROS Statement are negative. <Randy Treviño - Last Filed: 04/16/24 19:34> ROS Other: All systems not noted in ROS Statement are negative. <My Sanchez - Last Filed: 04/17/24 00:43> ROS Statement: Those systems with pertinent positive or pertinent negative responses have been documented in the HPI. Past Medical History Past Medical History: Hyperlipidemia, Hypertension, Osteoarthritis (OA), Thyroid Disorder History of Any Multi-Drug Resistant Organisms: None Reported Past Surgical History: Tubal Ligation Past Anesthesia/Blood Transfusion Reactions: No Reported Reaction Past Psychological History: No Psychological Hx Reported Smoking Status: Never smoker Past Alcohol Use History: Occasional Past Drug Use History: None Reported <My Sanchez - Last Filed: 04/17/24 00:43> General Exam Limitations: no limitations General appearance: alert, in no apparent distress Head exam: Present: atraumatic, normocephalic, normal inspection Eye exam: Present: normal appearance, PERRL, EOMI. Absent: scleral icterus, conjunctival injection, periorbital swelling ENT exam: Present: normal exam, mucous membranes moist Neck exam: Present: normal inspection. Absent: tenderness, meningismus, lymphadenopathy Respiratory exam: Present: normal lung sounds bilaterally. Absent: respiratory distress, wheezes, rales, rhonchi, stridor Cardiovascular Exam: Present: regular rate, normal rhythm, normal heart sounds. Absent: systolic murmur, diastolic murmur, rubs, gallop, clicks Extremities exam: Present: tenderness (left ankle), normal capillary refill, other (deformity to the left ankle ). Absent: full ROM (decreased ROM left ankle) Back exam: Present: normal inspection Neurological exam: Present: alert, oriented X3 Psychiatric exam: Present: normal affect, normal mood Skin exam: Present: warm, dry, normal color, abrasion (abrasion to left elbow). Absent: intact, rash <My Sanchez - Last Filed: 04/17/24 00:43> Course Vital Signs 04/16/24 04/16/24 04/16/24 16:14 17:59 18:01 Temperature 98.4 F Pulse Rate 71 85 70 Respiratory 18 16 16 Rate Blood Pressure 167/69 163/84 179/85 O2 Sat by Pulse 98 100 100 Oximetry 04/16/24 04/16/24 04/16/24 18:06 18:11 18:16 Temperature Pulse Rate 75 71 67 Respiratory 16 16 16 Rate Blood Pressure 175/85 145/75 135/72 O2 Sat by Pulse 94 L 100 99 Oximetry 04/16/24 04/16/24 04/16/24 18:31 18:46 19:01 Temperature Pulse Rate 76 72 78 Respiratory 18 16 16 Rate Blood Pressure 148/83 148/84 147/69 O2 Sat by Pulse 100 100 100 Oximetry Procedures - Procedural Sedation *Procedural Sedation Start Time: 18:03 *Procedural Sedation Stop Time: 18:18 *Risks,benefits, and alternative therapies discussed?: Yes *Patient indicates understanding of risk/benefit discussion?: Yes *Indications: fracture/dislocation reduction *Previous Adverse Reaction to Anesthesia/Sedation?: No * Testing Complete?: No Reason Test Not Complete:: Age > 60 *ASA Class: I *Mallampati Airway Score: 2 Preparation: groundwater monitoring technician applied, pulse oximeter, capnometry used, supplemental O2 applied, suction/airway equipment at bedside, IV secured IV Propofol Dose (mgs): 100 Complications: none Patient Tolerated Procedure: well, no complications <Randy Treviño - Last Filed: 04/16/24 19:34> - Orthopedic Splinting/Casting Injury #1 Side: left Lower Extremity Immobilizer: posterior splint, stirrup splint Other Orthopedic Equipment: crutches <My Sanchez - Last Filed: 04/17/24 00:43> Medical Decision Making <My Sanchez - Last Filed: 04/17/24 00:43> - Medical Decision Making Was pt. sent in by a medical professional or institution (, PA, SHEARING MACHINE FEEDER, urgent care, hospital, or chcf...) When possible be specific @ -No Did you speak to anyone other than the patient for history (EMS, parent, family, police, friend...)? What history was obtained from this source @ -No Did you review nursing and triage notes (agree or disagree)? Why? @ -I reviewed and agree with nursing and triage notes Were old charts reviewed (outside hosp., previous admission, EMS record, old EKG, old radiological studies, urgent care reports/EKG's, chcf records)? Report findings @ -No old charts were reviewed Differential Diagnosis (chest pain, altered mental status, abdominal pain women, abdominal pain men, vaginal bleeding, weakness, fever, dyspnea, syncope, headache, dizziness, GI bleed, back pain, seizure, CVA, palpatations, mental health, musculoskeletal)? @ -Differential Musculoskeletal Muscular strain, contusion, ligament sprain, fracture, arthritis, septic arthritis, bursitis, cellulitis, muscle spasm, nerve compression, DVT, arterial occlusion, herpes zoster, electrolyte abnormality, tumor.... This is not meant to be in all inclusive list EKG interpreted by me (3pts min.). @ -None X-rays interpreted by me (1pt min.). @ -X-ray of the left ankle shows dislocation with fractures to the tibia and fibula CT interpreted by me (1pt min.). @ -None done U/S interpreted by me (1pt. min.). @ -None done What testing was considered but not performed or refused? (CT, X-rays, U/S, labs)? Why? @ -None What meds were considered but not given or refused? Why? @ -None Did you discuss the management of the patient with other professionals (professionals i.e. , PA, SHEARING MACHINE FEEDER, lab, RT, psych nurse, social sciences chair, media relations coordinator, teacher, airplane first officer, case briefer)? Give summary @ -No Was smoking cessation discussed for >3mins.? @ -No Was critical care preformed (if so, how long)? @ -No Were there social determinants of health that impacted care today? How? (Homelessness, low income, unemployed, alcoholism, drug addiction, transportation, low edu. Level, literacy, decrease access to med. care, chcf, rehab)? @ -No Was there de-escalation of care discussed even if they declined (Discuss DNR or withdrawal of care, Hospice)? DNR status @ -No What co-morbidities impacted this encounter? (DM, HTN, Smoking, COPD, CAD, Cancer, CVA, ARF, Chemo, Hep., AIDS, mental health diagnosis, sleep apnea, morbid obesity)? @ -None Was patient admitted / discharged? Hospital course, mention meds given and route, prescriptions, significant lab abnormalities, going to OR and other pertinent info. @ -Discharged. Patient presented to the emergency department for evaluation of fall with right ankle injury. X-ray was obtained which showed dislocation of the left ankle with fractures of the tibia and fibula with posterior displacement of the ankle. Conscious sedation and reduction of the left ankle was performed. Patient was placed in a stirrup and posterior splint. NVI post reduction. Postreduction x-rays were obtained which showed improved alignment. Patient was observed in the emergency department following sedation. She was provided crutches and will follow-up with orthopedics. She was also provided medication for pain control at home. Patient is understanding agreeable with plan. Patient stable at time of discharge. Undiagnosed new problem with uncertain prognosis? @ -No Drug Therapy requiring intensive monitoring for toxicity (Heparin, Nitro, Insulin, Cardizem)? @ -No Were any procedures done? @ -Conscious sedation with closed reduction Diagnosis/symptom? @ -Ankle fracture Acute, or Chronic, or Acute on Chronic? @ -Acute Uncomplicated (without systemic symptoms) or Complicated (systemic symptoms)? @ -uncomplicated Side effects of treatment? @ -No Exacerbation, Progression, or Severe Exacerbation? @ -No Poses a threat to life or bodily function? How? (Chest pain, USA, IA, pneumonia, PE, COPD, DKA, ARF, appy, cholecystitis, CVA, Diverticulitis, Homicidal, Suicidal, threat to staff... and all critical care pts) @ -No (My Sanchez) Disposition <Randy Treviño - Last Filed: 04/16/24 19:34> Is patient prescribed a controlled substance at d/c from ED?: Yes <My Sanchez - Last Filed: 04/17/24 00:43> Clinical Impression: Fall, Closed left ankle fracture Disposition: HOME SELF-CARE Condition: Stable Instructions (If sedation given, give patient instructions): Ankle Fracture (ED), Moderate Sedation (ED) Additional Instructions: Please call orthopedics tomorrow morning. Rest, ice, elevate the foot and ankle. Utilize anti-inflammatory medication such as ibuprofen. Prescriptions: HYDROcodone/APAP 5-325MG [[place] 5] 1 each PO Q6HR PRN #12 tab PRN Reason: Pain Referrals: Dave Vigil MD [Primary Care Provider] - 1-2 days
[2024-04-16] MEDS: PROPOFOL 10 MG/ML 20 ML VIAL IV ONE ×2 (18:04→18:06)
--- NOTE | 2024-04-16 18:29 | XR ---
EXAMINATION TYPE: XR ankle limited LT DATE OF EXAM: 04/16/2024 6:24 PM CLINICAL INDICATION:Female, 63 years old with history of reduction; [facility] COMPARISON: Same day TECHNIQUE: XR ankle limited LT; ankle is imaged in frontal, lateral and oblique projections. FINDINGS/IMPRESSION: Improved alignment of the tibia and fibula fractures. Splint material in place no new fractures visua lized.
[2024-04-16 18:56] VITALS: RESP 16
[2024-04-16 19:03] VITALS: BP 147/69; PULSE 78
[2024-04-16] MEDS: ACET/COD 300 MG/30 MG STARTER PACK 6 TAB BTL PO STA (19:30)
== END 2024-04-16 19:40 | disposition home or self-care (01) ==
LOC: EC 16:08
DX: S82.202A Unspecified fracture of shaft of left tibia, initial encounter for closed fracture (principal); S82.402A Unspecified fracture of shaft of left fibula, initial encounter for closed fracture; Z88.2 Allergy status to sulfonamides; W18.30XA Fall on same level, unspecified, initial encounter
CPT/HCPCS: 99152; 99284; 73600; 73610; 27810; J2704

== ENCOUNTER → 2024-04-24 | Outpatient (CLI) | payer BC ==
--- NOTE | 2024-04-24 14:47 | CT ---
EXAMINATION TYPE: CT ankle LT wo con CT DLP: 248.30 mGycm, Automated exposure control for dose reduction was used. DATE OF EXAM: 04/24/2024 1:41 PM COMPARISON: Left ankle radiographs 04/16/2024 CLINICAL INDICATION:Female, 63 years old with history of S82.852A DISPLACED TRIMALLEOLAR FRACTURE OF LEFT L; PHH, trimalleolar fx. pain after fall off deck x1 week TECHNIQUE: Axial images were obtained of the left ankle without the use of IV contrast. Additional c oronal and sagittal reformatted images and soft tissue and bone window were obtained for review. 3-D reconstruction was created on a separate workstation. FINDINGS: Acute comminuted mildly displaced fracture of the distal fibula with slight lateral displac ement of approximately 2 mm. This is at the level of the ankle joint. Acute minimally displaced fract ure of the medial malleolus with approximately 2 mm of inferior and medially. Intra-articular extensi on demonstrated. Acute comminuted mild to moderately displaced fracture of the lateral malleolus with approximately 9 mm of displacement inferior and laterally. Intra-articular extension demonstrated. A dditional acute comminuted fracture of the posterior malleolus. No dislocation of the ankle. Surround ing soft tissue edema identified extending into the foot. Small joint effusion identified. Posterior and plantar calcaneus at these sites noted. IMPRESSION: 1. Acute comminuted trimalleolar fracture as described above. 2. Acute comminuted distal fibular fracture as described above.
== END | disposition home or self-care (01) ==
LOC: RADCTMAIN 13:09
PROVIDERS: ATTEND Podiatrist
DX: S82.852A Displaced trimalleolar fracture of left lower leg, initial encounter for closed fracture (principal); S82.832A Other fracture of upper and lower end of left fibula, initial encounter for closed fracture; X58.XXXA Exposure to other specified factors, initial encounter

== ENCOUNTER 2024-05-02 08:19 | Day surgery (SDC) | payer BC ==
[2024-04-30 09:37] VITALS: BMI 35.5
[~2024-05-02 08:19] MED LIST: HYDROmorphone 0.5 MG/0.5 ML SYRINGE IVP PRN; MIDAZOLAM 2 MG/2 ML VIAL IV PRN; SCOPOLAMINE 1 MG/72 HR PATCH TRANSDERM ONE
[2024-05-02] MEDS: LACTATED RINGERS 1,000 ML IV SCH (09:27)
[2024-05-02] MEDS: ONDANSETRON 4 MG/2 ML VIAL IVP ONE (09:27)
[2024-05-02] MEDS: DEXAMETHASONE SOD PHOSPHATE 4 MG/ML 1 ML VIAL IV ONE (09:27)
[2024-05-02] MEDS: IV FLUID CONTINUATION 1,000 ML IV ONE (09:27)
[2024-05-02] MEDS: fentaNYL (PF) 50 MCG/ML 2 ML AMP IVP ONE (09:34)
[2024-05-02] MEDS: MIDAZOLAM 2 MG/2 ML VIAL IVP ONE (09:34)
[2024-05-02 10:03] VITALS: RESP 16
[2024-05-02] MEDS ORDERED: fentaNYL (PF) 50 MCG/ML 2 ML AMP ONE (10:16)
[2024-05-02] MEDS ORDERED: MIDAZOLAM 2 MG/2 ML VIAL ONE (10:16)
[2024-05-02] MEDS ORDERED: DEXAMETHASONE SOD PHOSPHATE 4 MG/ML 1 ML VIAL ONE (10:16)
[2024-05-02] MEDS ORDERED: LIDOCAINE 1% INJ 10MG/ML (20 ML MDV) ONE (10:16)
[2024-05-02] MEDS ORDERED: PROPOFOL 10 MG/ML 20 ML VIAL IV ONE (10:16)
[2024-05-02] MEDS ORDERED: ROPIVACAINE 5 MG/ML 30 ML VIAL ONE (10:16)
[2024-05-02] MEDS ORDERED: ePHEDrine 50 MG/ML 1 ML VIAL ONE (10:16)
--- NOTE | 2024-05-02 11:41 | FL ---
EXAMINATION TYPE: FL guidance operating room, XR ankle complete LT Intraoperative/procedural fluorosc opic services were provided. 62 sec FL .7702 DAP dose 3 images
--- NOTE | 2024-05-02 11:52 | P.OP ---
Date of Procedure: 05/02/24 Preoperative Diagnosis: 1. Displaced left trimalleolar ankle fracture 2. Ruptured syndesmosis left ankle Postoperative Diagnosis: 1. Same 2. Same Procedure(s) Performed: 1. Open reduction with internal fixation left trimalleolar ankle fracture 2. Open reduction with internal fixation left syndesmosis rupture Implants: Eglon precontoured lateral malleolar fracture plate with 3.5 mm locking and nonlocking screws Arthrex tight rope Eglon 4.0 mm cannulated screws Anesthesia: BEAA Surgeon: Wei Kasper Estimated Blood Loss (ml): 10 Pathology: none sent Condition: stable Disposition: PACU Description of Procedure: Prior to the patient being brought to the operating room, anesthesia administered a nerve block on the right lower extremity. The patient was brought into the operative room and placed on table in supine position. Timeout was taken to confirm correct patient identifiers, correct laterality of surgery, and correct procedure. Once all staff in the room were in agreement with the timeout, the patient was induced and placed under general anesthesia. A well- padded tourniquet was placed on the right thigh and a wedge underneath the right hip to internally rotate the right leg. The right leg was then prepped and draped in usual manner. The leg was tingling irrigated with an Esmarch bandage and then the tourniquet was inflated to 250 mmHg. Inches directed over the lateral malleolus where a straight linear incision was made along the midline. The incision was deepened under the subcutaneous tissue careful to identify, avoid, and retract any neurovascular structures and cauterize any bleeding vessels. Dissection was carried down to level of the periosteum. A linear periosteal incision was madetissues were reflected anteriorly and posteriorly to expose the fracture. The soft tissue and hematoma were evacuated from between the fracture fragments. Bone reduction forceps were utilized to rotate and bring the fracture back into alignment. Once the fracture was aligned was clamped in place. Fluoroscopy confirmed the proper position of the fracture on AP and lateral views. 3.5 mm nonlocking cortical screw was then used as an interfragmentary screw, utilizing lag technique, across the fracture site. There was excellent bone purchase with the screw and the fracture was compressed well. Fluoroscopy confirmed the proper placement of the screw as well as maintained alignment of the fracture. A Eglon precontoured lateral malleolar plate was then positioned and adjusted under fluoroscopy until it was aligned appropriately. The plate was then temporarily fixated. Locking screws were placed in the most proximal 2 holes of the plate. Distal locking screws were then placed into the lateral malleolus. Drilling for the lateral malleolar screws was done under direct fluoroscopic visualization so that the drill bit did not enter the lateral gutter of the ankle joint. The distal screw was a compression screw to contour the plate and the other 2 screws were locking screws. Fluoroscopic imaging showed that the plate was properly aligned and the fracture well reduced. next there was a fracture of the anterior lateral tibia, which was the insertion point of the anterior inferior tibial-fibular ligament. The fracture was reduced and held in place with the wire. Fluoroscopic imaging showed proper placement of the wire. The cannulated screw was inserted over the wire and advanced until it compressed and reduce the fracture. Fluoroscopic imaging confirmed the proper placement of the hardware. Then attention was directed to the medial malleolar fracture. A bone clamp was used to reduce and hold the fracture in place. Fluoroscopy confirmed anatomic alignment of the fragment. Guidewires for 4.0 mm screws were placed at the distal aspect of the medial malleolus and advanced across the fracture and into the tibia. Fluoroscopic imaging confirmed the proper placement of the wires on the AP and lateral views. Drilling was performed over the wires. 4.0 cannulated screws were inserted over the wires and advanced until the heads engaged the bone of the medial malleolus and compressed the fracture. Fluoroscopic imaging showed proper alignment of the fracture fragment as well as proper placement of the screws. due to the avulsion fracture of the anterior inferior tibial-fibular ligament attachment, the decision was made to utilize a syndesmotic reduction device. The proper drill hole was selected through the plate on the lateral malleolus. A wire was placed through this hole and advanced from lateral to medial into the tibia and exiting out the medial cortex. The wire angle was also directed anteriorly. Fluoroscopic imaging showed proper alignment wire on the AP and lateral views. Drilling was performed until the drill exited the medial cortex of the tibia. Then the wire and drill bit were removed and the tight rope anchor was inserted and advanced until the button cleared the medial cortex of the tibia. The button was deployed manipulated until it lied flat against the tibial cortex. Then the long lines operator was removed and the lateral button tightened against the plate while holding the ankle maximally dorsiflexed. Fluoroscopic imaging showed proper alignment of the ankle as well as proper placement of the tight rope. Live stress testing was done and showed nor abnormal movement of the syndesmosis or any gapping of the medial or lateral gutters. The wounds were then thoroughly irrigated with antibiotic saline. Deep closure was done with 2-0 Vicryl. Subcu closure was done with 4-0 Monocryl. Skin closure was done with merritt. An Arthrex jumpstart dressing was placed over the incisions and then a bulky dry dressings applied to the right ankle. The tourniquet was released and capillary refill return to all digits on the right foot. Then the patient was placed in a well-padded, well molded posterior mold/sugar tong splint. The ankle was held in neutral dorsiflexion and slight inversion as it dried. Once the splint was dried, anesthesia was reversed and the patient was taken recovery with vital signs stable.
[2024-05-02 11:53] VITALS: TEMP 96.8
--- NOTE | 2024-05-02 12:25 | P.ANPRN ---
Procedure Note - Anesthesia - Nerve Block Performed Left Adductor Canal Single Time Out Performed: Yes Date of Procedure: 05/02/24 Procedure Start Time: 09:34 Procedure Stop Time: 09:39 Location of Patient: PreOp Indication: Acute Post-Operative Pain, Requested by Surgeon Sedation Type: Sedate with meaningful contact maintained Preparation: Sterile Prep, Sterile Dressing Position: Supine Catheter: None Needle Types: Facet Needle Gauge: 20 Ultrasound used to visualize needle placement: Yes Ultrasound used to observe medication spread: Yes Injectate: 0.5% Ropivacaine (see comment for volume) (10 ml + decadron 2 mg) Blood Aspirated: No Pain Paresthesia on Injection Noted: No Resistance on Injection: Normal Image Stored and Saved: Yes Events: Uneventful and Well Tolerated Left Popliteal Single Time Out Performed: Yes Date of Procedure: 05/02/24 Procedure Start Time: 09:40 Procedure Stop Time: 09:47 Location of Patient: PreOp Indication: Acute Post-Operative Pain, Requested by Surgeon Sedation Type: Sedate with meaningful contact maintained Preparation: Sterile Prep, Sterile Dressing Position: Right Lateral Catheter: None Needle Types: Facet Needle Gauge: 20 Ultrasound used to visualize needle placement: Yes Ultrasound used to observe medication spread: Yes Injectate: 0.5% Ropivacaine (see comment for volume) (20 ml + decadron 2 mg) Blood Aspirated: No Pain Paresthesia on Injection Noted: No Resistance on Injection: Normal Image Stored and Saved: Yes Events: Uneventful and Well Tolerated
[2024-05-02 12:50] VITALS: BP 108/66; PULSE 81
== END 2024-05-02 13:22 | disposition home or self-care (01) ==
LOC: OR 08:19
PROVIDERS: ATTEND Podiatrist
DX: S82.852A Displaced trimalleolar fracture of left lower leg, initial encounter for closed fracture (principal); G89.18 Other acute postprocedural pain; S93.432A Sprain of tibiofibular ligament of left ankle, initial encounter; I10 Essential (primary) hypertension; E78.5 Hyperlipidemia, unspecified; E07.9 Disorder of thyroid, unspecified; K21.9 Gastro-esophageal reflux disease without esophagitis; F10.90 Alcohol use, unspecified, uncomplicated; F17.200 Nicotine dependence, unspecified, uncomplicated; Z79.890 Hormone replacement therapy; Z79.82 Long term (current) use of aspirin; Z79.899 Other long term (current) drug therapy; X58.XXXA Exposure to other specified factors, initial encounter
CPT/HCPCS: 64447; 64445; 84132; 73610; 27822; 27829; C1713; J2250; J1100; J0690; J2405; J2001; J3010; J2795; J2704

== ENCOUNTER → 2024-09-15 | Outpatient (CLI) | payer BC ==
--- NOTE | 2024-09-21 18:29 | MM ---
Reason for Exam: Screening (asymptomatic). Last screening mammogram was performed 12 month(s) ago. Patient History: Menarche at age 12. First Full-Term at age 31. Late child-bearing (after 31). Postmenopausal. Patient has history of breast feeding. Hormonal Contraceptives, starting at age 17 for 20 years. 01/18/2023, Benign US biopsy breast VAD LT on the left side. Niece had breast cancer, age 47. Mother had breast cancer, age 54. Sister had ovarian cancer. Risk Values: Breanne 5 year model risk: 4.0%. NCI Lifetime model risk: 17.1%. Prior Study Comparison: 09/13/2022 Bilateral MG 3D screening mammo w/cad, [facility]. 10/04/2022 Left MG 3D work up w/cad LT, [facility]. 09/14/2023 Bilateral MG 3D screening mammo w/cad, [facility]. Tissue Density: There are scattered areas of fibroglandular density. Findings: Analyzed By CAD. The pattern is symmetrical. Couple spherical calcifications are within the right breast. Pattern appears stable No suspicious groups of microcalcifications, spiculated or lobular masses, architectural distortion or other secondary signs of malignancy are mammographically apparent. Overall Assessment: Benign, BI-RAD 2 Management: Screening Mammogram of both breasts in 1 year. A negative mammogram report should not preclude additional follow up of suspicious palpable abnormalities. Patient should continue monthly self breast exam. A clinical breast exam by your physician is recommended on an annual basis and results should be correlated with mammographic findings. Note on Breanne scores and lifetime risk: 1. A Breanne score greater than 3% is considered moderate risk. If this is the case, consider specialist referral to assess eligibility for a risk reducing agent. 2. If overall lifetime risk for the development of breast cancer is 20% or higher, the patient may qualify for future screening with alternating mammogram and breast MRI. [facility], , 09/21/2024 6:27 PM. Electronically signed and approved by: Sd Bautista D.O. Radiologis
== END | disposition home or self-care (01) ==
LOC: RADMAMWWP 15:06
PROVIDERS: ATTEND Surgery
DX: Z12.31 Encounter for screening mammogram for malignant neoplasm of breast (principal); R92.323 Mammographic fibroglandular density, bilateral breasts; Z80.3 Family history of malignant neoplasm of breast; Z78.0 Asymptomatic menopausal state
CPT/HCPCS: 77063; 77067

== ENCOUNTER → 2024-10-16 | Outpatient (CLI) | payer BC ==
[2024-10-16 15:27] VITALS: BP 133/79; PULSE 62; RESP 17; TEMP 98.3
--- NOTE | 2024-10-16 15:43 | P.PN ---
Subjective Progress Note Date: 10/16/24 09/21/23 07/26/23 enlarged axillary node Domonique is a 62 year old white female seen in consultation for Dr. Moraels regarding an abnormal left axillary node. The patient had a bilateral screening mammogram performed on . This revealed an area of concern in the left br east for which a diagnostic mammogram was performed on [id number]. This subsequently resulted in an ultrasound being performed which revealed mildly prominent left axillary lymph node which was felt to be possibly reactive in nature. A short-term follow up in 3 months was recommended. The patient subsequently underwent a repeat ultrasound to follow the lymph node up [id number] which revealed that the lymph node remained present. Therefore was considered BIRADS 4 and a ultrasound-guided core biopsy was performed and 3922. The lymph node at the that time was 3.5 cm long and had cortical thi ckening of 4-5 mm. The biopsy results revealed on 3922 a benign reactive lymph node and was felt to be concordant. The patient herself does not feel any new lumps masses or nodules of concern in either breast or under either arm. She is not complaining of any recent trauma or infection in her breast. She has never had any surgery on her breast. She states that after the core biopsy she had some soreness of her left arm from the shoulder to the elbow externally. This improving at this time. She did have the COVID vaccine in December 2020. 07-26-23 [place] [id number]. This revealed that the left axillary lymph node which had previously been sampled had decreased in size from 3.5 cm in length to 2.1 cm in length. It was felt to be benign BIRADS 2. She is due for a bilateral mammogram in September 2023. The patient states after the ultrasound core biopsy she developed some aching sensation in the upper and posterior aspect of the left arm. It is not constant. 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 She does have some small blisters that developed between her breast and over other areas when she sweats especially. bilateral mammogram on 09-14-23 BIRAD 2 Breanne risk evaluation 5 years: 3.9% NCI lifetime risk 17.6% This time patient has declined chemoprevention. The patient was having some pa in in her left axilla when she hyperextended her arm that is intermittent at this time. 10-16-24 She has not noted any new lumps masses or nodules of concern in either breast bilateral mammogram 09-15-24 BIRAD 2 fracture left ankle this spring which has healed Sister recently of ovarian cancer Brother recently diagnosed with multiple myeloma Neddick testing done patient's negative for genetic testing however according to the Tyrer-Cuzick risk model her cancer risk is 23.1% Breanne Risk 5 year: 4% lifetime risk: 17.1% Tyrer-Cuzick risk 23.1% lifetime Caffiene: 2 cups/day nicotine: none BCP: 15 years hormoens: none chocolate: weekly Family History: mother: breast cancer post-menopausal father: colon cancer paternal grandfather: colon cancer brother: skin cancer ? type brother: prostate cancer sister: one year ago with ovarian cancer brother: multiple myloma Hormonal History: menarche: 14 age at first : 31, breast fed: tried menopause: 51 Surgical History: tubaligation left ankle surgery Medical History: hypothyroid HTN high cholesterol arthritis ( took prednisone for many years) Social History: nicotine: none alcohol: occasional drugs: none - Constitutional Constitutional: Reports sweats, Denies chills, Denies fever - EENT Eyes: denies blurred vision, denies pain Ears: bilateral: decreased hearing, deny: tinnitus Ears, nose, mouth and throat: Denies headache, Denies sore throat - Breasts Breasts: bilateral: as per HPI - Cardiovascular Cardiovascular: Denies chest pain, Denies shortness of breath - Respiratory Respiratory: Denies cough - Gastrointestinal Comment: PUD Gastrointestinal: Denies abdominal pain, Denies diarrhea, Denies nausea, Denies vomiting - Genitourinary (Female) Genitourinary: Denies dysuria, Denies hematuria - Menstruation Menstruation: Reports postmenopausal - Musculoskeletal Musculoskeletal: Reports as per HPI - Integumentary Integumentary: Denies pruritus, Denies rash - Neurological Neurological: Denies numbness, Denies weakness - Psychiatric Psychiatric: Denies anxiety, Denies depression - Endocrine Endocrine: Denies fatigue, Denies weight change - Hematologic/Lymphatic Comment: baby aspirin daily - Allergic/Immunologic Allergic/Immunologic: Reports as per HPI Past Medical History Past Medical History: Hyperlipidemia, Hypertension, Osteoarthritis (OA), Thyroid Disorder History of Any Multi-Drug Resistant Organisms: None Reported Past Surgical History: Tubal Ligation Past Anesthesia/Blood Transfusion Reactions: No Reported Reaction Past Psychological History: No Psychological Hx Reported Smoking Status: Never smoker Past Alcohol Use History: Occasional Past Drug Use History: None Reported Medications and Allergies Home Medications Medication Instructions Recorded Confirmed Type Aspirin [Mellette Aspirin EC] 81 mg PO DAILY 01/10/19 01/25/23 History Baclofen [Lioresal] 10 mg PO HS 01/10/19 01/25/23 History Ibuprofen [Motrin Ib] 400 mg PO Q46H PRN 01/10/19 01/25/23 History Levothyroxine Sodium [Synthroid] 25 mcg PO DAILY 01/10/19 01/25/23 History Omeprazole 20 mg PO DAILY 01/10/19 01/25/23 History traMADol HCl [Ultram] 100 mg PO BID 01/10/19 01/25/23 History Losartan-Hctz 50-12.5 mg [Hyzaar 1 tab PO DAILY 01/09/23 01/25/23 History 50-12.5] Rosuvastatin [Crestor] 10 mg PO DAILY 01/09/23 01/25/23 History Allergies Allergy/AdvReac Type Severity Reaction Status Date / Time Sulfa (Sulfonamide Allergy Rash/Hives Verified 01/25/23 15:30 Antibiotics) Objective - Vital Signs Vital signs: Vital Signs Temp 98.3 F 10/16/24 15:21 Pulse 62 10/16/24 15:21 Resp 17 10/16/24 15:21 BP 133/79 10/16/24 15:21 Pulse Ox 97 10/16/24 15:21 FiO2 Intake & Output 10/15/24 10/16/24 10/16/24 18:59 06:59 18:59 Weight 85.729 kg - Constitutional General appearance: Present: cooperative - EENT Eyes: Present: EOMI ENT: Present: hearing grossly normal - Neck Neck: Present: normal ROM - Respiratory Respiratory: bilateral: CTA - Cardiovascular Rhythm: regular Heart sounds: normal: S1, S2 - Integumentary Integumentary: Present: normal turgor - Musculoskeletal Musculoskeletal: Present: gait normal - Psychiatric Psychiatric: Present: A&O x's 3, appropriate affect, intact judgment & insight - Additional findings Additional findings: Breast Exam: BRA: 38DD Inspection: bilateral grade 2/3 ptosis Palpation: Right breast: Multiple positional exam fibrocystic changes no dominant masses or nodules of concern Right axilla: No adenopathy of concern Left breast: Multiple positional exam fibrocystic changes no dominant masses or nodules of concern Left axilla: No adenopathy of concern Patient has no restriction in range of motion of the left shoulder at this time Assessment and Plan Assessment: Impression: Fibrocystic breast changes Bilateral mammogram 114-24 benign BIRADS 2 Recent left axillary core biopsy benign and concordant Plan: Bilateral mammogram in 1 year genetic testing lifetime risk for development of breast cancer 23.1% Alternate MRI with mammogram every 6 months Bilateral breast MRI in 6 months with physician exam at that time Patient to follow-up sooner any questions or concerns CC: Dr. Morales, Dr. Flores
== END ==
LOC: WWCWWP 14:44
PROVIDERS: ATTEND Surgery
DX: R92.8 Other abnormal and inconclusive findings on diagnostic imaging of breast (principal); N60.11 Diffuse cystic mastopathy of right breast; N60.12 Diffuse cystic mastopathy of left breast; Z88.2 Allergy status to sulfonamides